=== PATIENT | male | born 1955 | race Caucasian/White ===

== ENCOUNTER 2019-10-03 09:47 | Emergency (ER) ==
[~2019-10-03] VITALS: Ht 177.8 cm; Wt 112.0 kg
[2019-10-03] MEDS ORDERED: ONDANSETRON 2MG/ML, 2ML ONE (10:56)
[2019-10-03] MEDS ORDERED: ONDANSETRON 2MG/ML, 2ML IVPush ONE (11:00)
[2019-10-03] MEDS ORDERED: SODIUM CHLORIDE FLUSH 10ML SYR IVF ONE (11:00)
[2019-10-03 11:18] LABS: BASOPHILS # (AUTO) 0.01 x10^3/uL (0-0.1); BASOPHILS % (AUTO) 0 % (0-1); EOSINOPHILS % (AUTO) 0 % (1-7); LYMPHOCYTES % (AUTO) 3 % (22-44); MD NO; MEAN CORPUSCULAR HEMOGLOBIN 31.9 pg (27.5-34.5); MEAN CORPUSCULAR HGB CONC 33.7 g/dL (33.2-36.2); MEAN CORPUSCULAR VOLUME 94.4 fL (81-97); MEAN PLATELET VOLUME 6.7 fL (7.4-10.4); MONOCYTES # (AUTO) 0.71 x10^3/uL (0.2-0.8); MONOCYTES % (AUTO) 10 % (2-9); NEUTROPHILS # (AUTO) 6.42 x10^3/uL (1.8-6.8); NEUTROPHILS % (AUTO) 87 % (42-75); PLATELET COUNT 356 x10^3/uL (130-400); RED BLOOD COUNT 4.43 x10^6/uL (4.38-5.82); RED CELL DISTRIBUTION WIDTH 13.5 % (9.4-14.8)
[2019-10-03 11:22] LABS: ALBUMIN 3.9 g/dL (3.4-5.0); ANION GAP 6 mmol/L (5-15); CHLORIDE 105 mmol/L (98-107)
[2019-10-03 11:26] LABS: ALANINE AMINOTRANSFERASE 29 U/L (12-78); ALKALINE PHOSPHATASE 94 U/L (45-117); BILIRUBIN,TOTAL 0.5 mg/dL (0.2-1.0); CREATININE 1.18 mg/dL (0.7-1.3); TOTAL PROTEIN 8.5 g/dL (6.4-8.2)
[2019-10-03 11:35] LABS: TROPONIN I < 0.015 ng/mL (0.000-0.045)
[2019-10-03 11:44] LABS: RAPID INFLUENZA A Negative (Negative); RAPID INFLUENZA B Negative (Negative)
--- NOTE | 2019-10-03 11:53 | NUR ---
RECIEVED BEDSIDE REPORT KYLIE TANNER.
--- NOTE | 2019-10-03 12:25 | NUR ---
CHART PLACED UP FOR RECHECK.
[2019-10-03 12:46] VITALS: BP 174/77
--- NOTE | 2019-10-03 13:31 | NUR ---
Patient/Caregiver given discharge instructions and they have confirmed that they understand the instructions. Patient ambulatory with steady gait.
== END 2019-10-03 13:33 | disposition home or self-care (01) ==
LOC: ED 12:43
DX: J06.9 Acute upper respiratory infection, unspecified (principal); R11.2 Nausea with vomiting, unspecified
CPT/HCPCS: 36415; 71046; 80053; 83605; 84484; 85025; 87040; 87400; 93005; 96374; 99284; J2405

== ENCOUNTER 2021-05-19 16:52 | Inpatient (IN) | payer MEDICAID ==
[~2021-05-19] VITALS: Ht 177.8 cm; Wt 98.1 kg
--- NOTE | 2021-05-19 18:30 | NUR ---
clinical quality assurance associate: Pt ambulatory to room from lobby at this time.
--- NOTE | 2021-05-19 18:39 | NUR ---
PATIENT WALKED BACK FROM TRIAGE WITH CHIEF C/O RIGHT LEG SWELLING. PATIENT REPORTS SWELLING STARTED 3 DAYS AGO AND HAS GOTTEN PROGRESSIVELY WORSE, UNABLE TO GET INTO PCP. RIGHT LEG IS NOTICEABLY MORE SWOLLEN THAN LEFT LEG, REDNESS NOTED TO RIGHT LEG, DORSALIS PEDAL PULSE 2+ BILATERALLY. PATIENT DENIES CP, SOB. NADN, CONNECTED TO MONITORS, HTN, OTHER VSS, CALL LIGHT WITHIN REACH.
--- NOTE | 2021-05-19 18:50 | NUR ---
RECEIVED BS REPORT FROM FLORES EUCEDA TO ASSUME CARE OF PT. AT THIS TIME.
--- NOTE | 2021-05-19 20:23 | NUR ---
CHEST X-RAY COMPLETED. PT. CONTINUES TO DENY ANY SOB.
[2021-05-19 20:45] LABS: BASOPHILS % (AUTO) 0 % (0-1); EOSINOPHILS % (AUTO) 1 % (1-7); LYMPHOCYTES % (AUTO) 16 % (22-44); MEAN CORPUSCULAR HEMOGLOBIN 32.5 pg (27.5-34.5); MEAN CORPUSCULAR HGB CONC 34.1 g/dL (33.2-36.2); MEAN PLATELET VOLUME 6.4 fL (7.4-10.4); MONOCYTES % (AUTO) 11 % (2-9); NEUTROPHILS % (AUTO) 72 % (42-75); PLATELET COUNT 251 x10^3/uL (130-400); RED CELL DISTRIBUTION WIDTH 13.2 % (9.4-14.8)
[2021-05-19 20:48] LABS: ALBUMIN 3.9 g/dL (3.4-5.0); ANION GAP 3 mmol/L (5-15); CALCIUM 9.2 mg/dL (8.5-10.1); CHLORIDE 108 mmol/L (98-107); CREATININE 0.98 mg/dL (0.7-1.3)
[2021-05-19] MEDS ORDERED: ENOXAPARIN 100 MG/ML SQ ONE (21:30)
[2021-05-19] MEDS ORDERED: ENOXAPARIN 100 MG/ML ONE (21:54)
[2021-05-19] MEDS ORDERED: CLIN300C9 PO (22:02)
[2021-05-19] MEDS ORDERED: IBUP-1223 PO (22:02)
[2021-05-19 23:10] VITALS: BP 181/91
[2021-05-20] MEDS ORDERED: PAPA1TAB8 PO
[2021-05-20] MEDS ORDERED: [UNRECOGNIZED DRUG - CODE] PO
[2021-05-20] MEDS ORDERED: ENALAPRILAT 1.25 MG/ML, 2ML IVPush PRN (05:00)
[2021-05-20] MEDS ORDERED: OXYcodone IR 5MG TABLET PO PRN (05:00)
[2021-05-20] MEDS ORDERED: ZOLPIDEM 5MG TABLET PO PRN (05:00)
[2021-05-20] MEDS ORDERED: DOCUSATE 100 MG CAPSULE PO PRN (05:00)
[2021-05-20] MEDS ORDERED: ONDANSETRON 2MG/ML, 2ML IVPush PRN (05:00)
[2021-05-20] MEDS ORDERED: GUAIFENESIN/DM 200-20MG, 10ML UDC PO PRN (05:00)
[2021-05-20] MEDS ORDERED: CYCLOBENZAPRINE 10 MG TABLET PO PRN (05:00)
[2021-05-20] MEDS ORDERED: morphine SULFATE 10 MG/ML, 1ML IVPush PRN (05:00)
[2021-05-20] MEDS ORDERED: ACETAMINOPHEN 325 MG TABLET PO PRN (05:00)
[2021-05-20] MEDS ORDERED: CLINDAMYCIN 300 MG CAPSULE PO SCH (06:00)
[2021-05-20 06:51] LABS: BASOPHILS % (AUTO) 1 % (0-1); EOSINOPHILS % (AUTO) 1 % (1-7); LYMPHOCYTES % (AUTO) 18 % (22-44); MEAN CORPUSCULAR HGB CONC 34.5 g/dL (33.2-36.2); MEAN PLATELET VOLUME 6.4 fL (7.4-10.4); MONOCYTES % (AUTO) 11 % (2-9); NEUTROPHILS % (AUTO) 70 % (42-75); PLATELET COUNT 231 x10^3/uL (130-400); RED BLOOD COUNT 3.86 x10^6/uL (4.38-5.82); RED CELL DISTRIBUTION WIDTH 13.2 % (9.4-14.8)
[2021-05-20 06:59] LABS: CALCIUM 8.9 mg/dL (8.5-10.1); CREATININE 1.05 mg/dL (0.7-1.3)
[2021-05-20 07:13] VITALS: BP 165/77
[2021-05-20 07:26] LABS: ANION GAP 4 mmol/L (5-15); CHLORIDE 106 mmol/L (98-107)
[2021-05-20] MEDS ORDERED: APIX5TAB PO (08:16)
[2021-05-20] MEDS ORDERED: PAPAYA PO SCH (09:00)
[2021-05-20] MEDS ORDERED: LECITHIN 1200 MG PO SCH (09:00)
[2021-05-20] MEDS ORDERED: IBUPROFEN 800 MG TABLET PO SCH (09:00)
[2021-05-20] MEDS ORDERED: APIXABAN 5 MG TABLET PO SCH (09:00)
== END 2021-05-20 10:50 | disposition home or self-care (01) | DRG 301 ==
LOC: ED 21:45 → 5SO 22:44
PROVIDERS: ADMIT Family Medicine; ATTEND Hospitalist
DX: I82.411 Acute embolism and thrombosis of right femoral vein (principal); E66.9 Obesity, unspecified; D64.9 Anemia, unspecified; E87.8 Other disorders of electrolyte and fluid balance, not elsewhere classified; Z83.3 Family history of diabetes mellitus; Z68.31 Body mass index [BMI] 31.0-31.9, adult
CPT/HCPCS: 36415; 71045; 80048; 82040; 85025; 93005; G0378; J1650